=== PATIENT | female | born 1970 | race Caucasian/White ===

== ENCOUNTER 2016-02-24 14:35 | Emergency (ER) | payer OTHER ==
[2016-02-24 14:48] VITALS: BP 155/67
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
== END 2016-02-24 15:48 | disposition home or self-care (01) ==
LOC: ED 14:35
DX: F41.9 Anxiety disorder, unspecified (principal); K30 Functional dyspepsia; R19.7 Diarrhea, unspecified; R61 Generalized hyperhidrosis; I10 Essential (primary) hypertension; E78.5 Hyperlipidemia, unspecified; J45.909 Unspecified asthma, uncomplicated; E11.9 Type 2 diabetes mellitus without complications; F32.9 Major depressive disorder, single episode, unspecified; F31.9 Bipolar disorder, unspecified; F17.210 Nicotine dependence, cigarettes, uncomplicated; Z79.899 Other long term (current) drug therapy; Z76.0 Encounter for issue of repeat prescription; Z71.6 Tobacco abuse counseling; Z87.42 Personal history of other diseases of the female genital tract; Z87.442 Personal history of urinary calculi; Z87.440 Personal history of urinary (tract) infections
CPT/HCPCS: 99282

== ENCOUNTER 2016-04-22 11:51 | Emergency (ER) ==
[2016-04-22 12:25] VITALS: BP 136/76
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
== END 2016-04-22 14:26 | disposition home or self-care (01) ==
LOC: ED 11:51
DX: F41.9 Anxiety disorder, unspecified (principal); I10 Essential (primary) hypertension; E78.5 Hyperlipidemia, unspecified; J45.909 Unspecified asthma, uncomplicated; E11.9 Type 2 diabetes mellitus without complications; F32.9 Major depressive disorder, single episode, unspecified; F31.9 Bipolar disorder, unspecified; E66.9 Obesity, unspecified; F17.210 Nicotine dependence, cigarettes, uncomplicated; Z79.899 Other long term (current) drug therapy; Z76.0 Encounter for issue of repeat prescription; Z71.6 Tobacco abuse counseling; Z87.42 Personal history of other diseases of the female genital tract; Z87.442 Personal history of urinary calculi; Z87.440 Personal history of urinary (tract) infections
CPT/HCPCS: 99282